=== PATIENT | male | born 1955 | race Caucasian/White ===

== ENCOUNTER 2018-07-21 15:01 | Emergency (ER) | payer OTHER ==
[2018-07-21 15:39] VITALS: BP 159/78
--- NOTE | 2018-07-21 15:59 | UC ---
Cardiac HPI - HPI Summary HPI Summary: Patient was discussed urgent care for evaluation of left-sided chest pain. Patient states for 14 days he's had a cough. Patient states the cough is not getting better. Patient states for the last 3 days the chest discomfort has been progressive. Patient states it was initially a little bit of pain in the epigastric area. Patient states now he has a bigger area substernal left anterior chest wall. Patient denies any radiation. Patient states he's also noticed with walking that he gets more short of breath which is new and unusual for him. Patient sits in his breathing gets better. Patient's denies a wheeze. Patient's cough is not productive. Patient has not taken any over-the- counter medication. Patient has a history of vertigo but no current symptoms of this. Patient denies fevers. No chills. No nausea vomiting. Patient has not taken anything for the discomfort. Patient states he has noticed he is getting help from other people to do things for him which is unusual. Patient has a history of intermittent elevated blood pressure but not as medicated for. Patient also with a history of high cholesterol but no medications. Patient' s mom had an [place] at age of 70. Patient has never had a cardiac stress test. Patient does have a hiatal hernia. Patient does not smoke. Patient's medications reviewed this visit. - History of Current Complaint Chief Complaint: UCChestPain Stated Complaint: UPPER RESPIRATORY, CONGESTION Time Seen by Provider: 07/21/18 15:43 Hx Obtained From: Patient Onset/Duration: Gradual Onset Initial Severity: Mild Current Severity: Moderate Pain Intensity: 4 Chest Pain Location: Left Anterior, Left Lateral Character: Sharp/Stabbing Aggravating Factor(s): Exertion Alleviating Factor(s): Rest Associated Signs & Symptoms: Positive: SOB - with walking, Cough - improving. Negative: Weakness, Dizziness - Allergy/Home Medications Allergies/Adverse Reactions: Allergies Allergy/AdvReac Type Severity Reaction Status Date / Time ragweed pollen Allergy Eyes Verified 07/21/18 15:31 Itchy/Swollen/Red/Watery Home Medications: Home Medications Esomeprazole Magnesium [Nexium 24Hr] 40 mg PO DAILY 07/21/18 [History Confirmed 07/21/18] PMH/Surg Hx/FS Hx/Imm Hx Previously Healthy: Yes Endocrine History: Dyslipidemia Cardiovascular History: Hypertension - Surgical History Surgical History: Yes Surgery Procedure, Year, and Place: - Family History Known Family History: Positive: Non-Contributory - Social History Lives: With Family Alcohol Use: Rare Substance Use Type: None Smoking Status (MU): Never Smoked Tobacco Review of Systems All Other Systems Reviewed And Are Negative: Yes Skin: Positive: Negative Eyes: Positive: Negative Respiratory: Positive: Shortness Of Breath, Cough Cardiovascular: Positive: Chest Pain Gastrointestinal: Positive: Negative Genitourinary: Positive: Negative Motor: Positive: Negative Physical Exam - Summary Physical Exam Summary: Vital Signs Reviewed: Yes A+Ox3, no distress Eyes: Conjunctiva Clear, JOSSELYN. EOM intact and full ENT: Hearing grossly normal TM x 2 clear, mmoist, uvula midline, no exudate, no erythema Neck: Positive: Supple Respiratory: Positive: No respiratory distress, No accessory muscle use + CTA throughout no w/r Cardiovascular: RRR nl s1, s2 no m/r CBT <2 sec mild discomfort with palpation superior margin, lateral aspect of sternum. Not reproduced with ROM of upper ext with resistance abd soft + BS nt/nd no guarding, no distension Musculoskeletal Exam: BARRAGAN x 4 without difficulty Strength Intact, ROM Intact Neurological: Positive: Alert, + sensation throughout Psychological: Positive: Normal Response To Family Skin: Positive: no rash, no ecchymosis Triage Information Reviewed: Yes Vital Signs: Initial Vital Signs Temp 98.7 F 07/21/18 15:35 Pulse 74 07/21/18 15:35 Resp 24 07/21/18 15:35 BP 159/78 07/21/18 15:35 Pulse Ox 96 07/21/18 15:35 Diagnostics - EKG Cardiac Rate: NL Cardiac Rhythm: Sinus: Normal, AFib: Normal Ectopy: None ST Segment: Normal EKG Comparison: No Significant Change - Assessment/Plan Course Of Treatment: Patient presents to urgent care with escalating chest discomfort and shortness of breath with exertion for the last 3-4 days. Patient states he had head cold and congestion with a cough. Patient states the cough has been getting better but these are certainly worse. Patient without history of similar. Patient is not taking anything for pain. Patient denies nausea vomiting. No diaphoresis. On exam vital signs show mildly elevated blood pressure. Patient does have cholesterol but does not take medications. Patient has some discomfort on the left sternal border superior margin. This is reproduced by direct palpation but not with range of motion against resistance. Patient states he is unsure whether this is same pain that he's been having. EKG reviewed and non-diagnostic for an acute process. I had a long discussion with patient. Recommend a flores patient to emergency department for further evaluation. Patient agreement and plan. Okay for patient to go by private car she's had for 3 days and his EKG is not concerning for an acute process. Patient given dose of aspirin here prior to discharge. Spoke to Zuleyka Olvera, nurse practitioner in the ED at [facility] is aware patient's coming. Patient comfortable in agreement with plan. - Clinical Impression Provider Diagnosis: Chest pain, MISHRA (dyspnea on exertion) Discharge - Sign-Out/Discharge Documenting (check all that apply): Patient Departure All imaging exams completed and their final reports reviewed: No Studies - Discharge Plan Condition: Stable Disposition: HOME-RECOMMEND TO ED Patient Education Materials: Chest Pain (ED) Referrals: Marylin Moyer PA [Primary Care Provider] - Additional Instructions: The doctor that evaluated you today thinks that you need additional testing that can be completed the emergency department. It is recommended that you go directly to emergency department for further evaluation. This evaluation may include blood work or imaging. This testing will be directed and decided by the provider that evaluate you at the emergency department. If pain becomes worse, you feel lightheaded, you have uncontrolled vomiting, or you have any other concerns while you are being driven to emergency department as recommended to pullover and contact 911. - Billing Disposition and Condition Condition: STABLE Disposition: Home-Recommend to ED
[2018-07-21] MEDS ORDERED: Aspirin 81 mg CHEW TAB* 81 MG TAB.CHEW PO ONE (16:07)
[2018-07-22] MEDS ORDERED: Aspirin 81 mg CHEW TAB* 81 MG TAB.CHEW PO ONE (15:59)
== END 2018-07-21 16:05 | disposition home health service (06) ==
LOC: UCCORT 15:01
DX: R07.89 Other chest pain (principal); R06.09 Other forms of dyspnea; R05 Cough; R10.13 Epigastric pain; R06.02 Shortness of breath; K44.9 Diaphragmatic hernia without obstruction or gangrene; R09.89 Other specified symptoms and signs involving the circulatory and respiratory systems; I10 Essential (primary) hypertension; Z82.49 Family history of ischemic heart disease and other diseases of the circulatory system; Z91.09 Other allergy status, other than to drugs and biological substances
CPT/HCPCS: 93005; 99212; A9270-GY; G0463